=== PATIENT | female | born 1965 ===

== ENCOUNTER 2019-06-01 11:19 | Emergency (ER) | payer BC ==
[2019-06-01 13:12] VITALS: BP 155/69
--- NOTE | 2019-06-01 13:19 | UC ---
- HPI Summary HPI Summary: 54 y/o female presents to the urgent care c/o Left breast pain started 5 weeks ago. Pt states she doesn't feel any lump, no redness; no injury reported. Pt reports she recently moved for [place] here to the area and has been lifting a lot of boxes. LMP:20 years ago s/p hysterectomy in 1991. Last Mammogram was 05/2018 which was negative. Pain is 6/10 at touch, specially if she sleeps on that side. She has not taken any medication since she has Hx of esophageal strictures 2 years ago and 1.5 years ago she a a liver biopsy of a liver benign nodule. She doesn't have a PCP here in the area yet. But she has an appt with [facility] on 06/18, and mammogram appt 06/26/2019. She is very concerned about breast cancer since she has FMHX of breast cancer and cervical cancer form her aunts. Pt denies fever, nipple discharge, breast rash, lumps, DINERO / dizziness, recent weight lost in the last 3 months, SOB, chest pain, abdominal pain, N/V/D - History of Current Complaint Hx Obtained From: Patient Breast Chief Complaint: Pain - left breast pain Onset/Duration: Started Weeks Ago - 5 weeks, Atraumatic, Still Present Timing: Intermittent - at touch Breast Pain Radiates To: Left - left breast Breast Pain Aggravating Factors: Palpation Breast Pain Alleviating Factors: Nothing Breast Associated Signs/Symptoms: Negative - Allergy/Home Medications Allergies/Adverse Reactions: Allergies Allergy/AdvReac Type Severity Reaction Status Date / Time bacitracin Allergy Rash Verified 06/01/19 13:17 [From Neosporin ([id number])] latex Allergy cellulitis Verified 06/01/19 13:17 morphine Allergy Swelling Verified 06/01/19 13:17 Of Face,Lips,& Throat neomycin Allergy Rash Verified 06/01/19 13:17 [From Neosporin ([id number])] Penicillins Allergy Unknown Verified 06/01/19 13:17 Reaction Details polymyxin B Allergy Rash Verified 06/01/19 13:17 [From Neosporin ([id number])] Home Medications: Home Medications NK [No Home Medications Reported] 06/01/19 [History Confirmed 06/01/19] PMH/Surg Hx/FS Hx/Imm Hx Previously Healthy: Yes Endocrine History: Dyslipidemia - diet control - Surgical History Surgical History: Yes Surgery Procedure, Year, and Place: abdominal surgeries: appy with scar tissue, hysterectomy r/t cysts, single oopherectomy, salpingectomy, laparoscopic adhesions - Family History Known Family History: Positive: Cardiac Disease, Hypertension Family History: breast cancer and cervical cancer from her aunts - Social History Occupation: Unemployed Lives: With Family Alcohol Use: Rare Substance Use Type: None Smoking Status (MU): Never Smoked Tobacco Review of Systems All Other Systems Reviewed And Are Negative: Yes Constitutional: Positive: Negative Skin: Positive: Negative Eyes: Positive: Negative ENT: Positive: Negative Respiratory: Positive: Negative Cardiovascular: Positive: Negative Gastrointestinal: Positive: Negative Genitourinary: Positive: Other - left breast pain Motor: Positive: Negative Neurovascular: Positive: Negative Musculoskeletal: Positive: Negative Neurological: Positive: Negative Psychological: Positive: Negative Is Patient Immunocompromised?: No Physical Exam - Summary Physical Exam Summary: VITAL SIGNS: Reviewed. GENERAL: Patient is a well developed and nourished female who is sitting comfortable in the examining table. Patient is not in any acute respiratory distress. HEAD AND FACE: No signs of trauma. No ecchymosis, hematomas or skull depressions. No sinus tenderness. EYES: PERRLA, EOMI x 2, No injected conjunctiva, clear watery eyes, no nystagmus. No photophobia. EARS: Hearing grossly intact. Ear canals and tympanic membranes are within normal limits. MOUTH: pharynx with no erythema, no exudates,no palatal petechiae. no B/L tonsillar enlargement Uvula in midline. NECK: Supple, trachea is midline, no lymphadenopathy, no JVD, no carotid bruit, no c-spine tenderness, neck with full ROM. CHEST: Symmetric, no tenderness at palpation LUNGS: Clear to auscultation bilaterally. No wheezing or crackles. CVS: Regular rate and rhythm, S1 and S2 present, no murmurs or gallops appreciated. Breast:B/L breast are symmetric and have normal contour. Skin is of normal color and appearance; there are not edema, ulceration, or erythema. Nipples are of normal size and shape; there is no nipple retraction, ulceration or discharge. Left breast Palpation reveals fibroglandular tissue which is tender , but not specific masses palpated. ABDOMEN: Soft, non-tender. No signs of distention. No rebound no guarding, and no masses palpated. Bowel sounds are normal. BACK:no scoliosis or lesions, non tender to palpation, No B/L CVA tenderness EXTREMITIES: FROM in all major joints, no edema, no cyanosis or clubbing. NEURO: Alert and oriented x 3. No acute neurological deficits. Speech is normal and follows commands. SKIN: Dry and warm Triage Information Reviewed: Yes Vital Signs: Initial Vital Signs Temp 99.1 F 06/01/19 12:59 Pulse 58 06/01/19 12:59 Resp 20 06/01/19 12:59 BP 155/69 06/01/19 12:59 Pulse Ox 100 06/01/19 12:59 Breast Pain Course/Dx - Course Course Of Treatment: 54 y/o female presents to the urgent care c/o Left breast pain started 5 weeks ago. Pt states she doesn't feel any lump, no redness; no injury reported. Pt reports she recently moved for [place] here to the area and has been lifting a lot of boxes. LMP:20 years ago s/p hysterectomy in 1991. Last Mammogram was 05/2018 which was negative. Pain is 6/10 at touch, specially if she sleeps on that side. She has not taken any medication since she has Hx of esophageal strictures 2 years ago and 1.5 years ago she a a liver biopsy of a liver benign nodule. She doesn't have a PCP here in the area yet. But she has an appt with [facility] on 06/18, and mammogram appt 06/26/2019. She is very concerned about breast cancer since she has FMHX of breast cancer and cervical cancer form her aunts. Pt denies fever, nipple discharge, breast rash, lumps, DINERO / dizziness, recent weight lost in the last 3 months, SOB, chest pain, abdominal pain, N/V/D. Hx obtained. Pt is hemodynamically stable, A&OX3, Vitals : WNL> PE:WNL except for:B/L breast are symmetric and have normal contour. Skin is of normal color and appearance; there are not edema, ulceration, or erythema. Nipples are of normal size and shape; there is no nipple retraction, ulceration or discharge. Left breast Palpation reveals fibroglandular tissue which is tender, but not specific masses palpated. Pt educated on fibrocystic benign disease and the importance of a breast ultrasound and Mammogram due to her FMHX. Pt advised take Naproxen PO BID prn after meals to alleviate pain . Increase fluid intake, eat well, rest and avoid strenuous exercise, Wear breast support at all times. Apply cold compresses to alleviate pain. Strongly recommended to f/u w/ your PCP Dr Angulo on your appt next in the following weeks for blood work and further management. F/U w/ your Mammogram on 06/26/2019 for further management on her mastalgia. Pt's BP is elevated today. advised decrease salt in your diet, monitor BP and if it continues to be elevated please f/u with your PCP for further management.D/C instructions explained. Pt understood and agreed w/ plan of care. - Differential Diagnoses Differential Diagnosis/HQI/PQRI: Cystic Myalgia - Diagnoses Provider Diagnoses: Mastalgia in female, Elevated BP without diagnosis of hypertension Discharge ED - Sign-Out/Discharge Documenting (check all that apply): Patient Departure - D/C home All imaging exams completed and their final reports reviewed: No Studies - Discharge Plan Condition: Stable Disposition: HOME Patient Education Materials: Trigger Point Pain (ED) Referrals: Brigette Jasso DO [Primary Care Provider] - 3 Days Additional Instructions: 1-Please take Naproxen PO BID prn after meals to alleviate pain . Increase fluid intake, eat well, rest and avoid strenuous exercise 2- Wear breast support at all times. Apply cold compresses to alleviate pain. 3-Please f/u w/ your PCP Dr Angulo on your appt next in the following weeks for blood work and further management. F/U w/ your Mammogran on 06/26/2019 for further management on your mastalgia. 4- Your BP is elevated today. please decrease salt in your diet, monitor BP and if it continues to be elevated please f/u with your PCP for further management. Breast pain (mastalgia) is common in women but rarely a symptom of breast cancer in the absence of corroborating physical or imaging findings. -Breast pain is classified as cyclic, noncyclical, or extramammary. Clinically it is more important to distinguish extramammary pain from true breast pain, as cyclic and noncyclic breast pain are treated similarly. -Women who present with breast pain should undergo a thorough history and physical examination, before clinical judgment is used to determine whether imaging tests are necessary -Assuming they are up to date with breast cancer screening women who have breast pain but lack suspicious findings on physical exam (eg, mass, skin changes, or bloody nipple discharge) may undergo breast imaging selectively based on their presentation and age Cyclical or bilateral diffuse breast pain usually does not require imaging. Noncyclical, unilateral, or focal breast pain that is not extramammary may benefit from breast imaging to elucidate the underlying etiology and exclude breast cancer. Women under 30 years of age should undergo ultrasound; those between 30 and 39 should undergo ultrasound with or without mammography; those 40 or over should undergo both ultrasound and mammography. - Billing Disposition and Condition Condition: STABLE Disposition: Home - Attestation Statements Provider Attestation: Per institutional requirements, I have reviewed the chart, however, I was not consulted specifically or made aware of this patient by the midlevel provider. I did not personally evaluate, interact with , or disposition this patient.
== END 2019-06-01 14:20 | disposition home or self-care (01) ==
LOC: UCCORT 11:19
DX: N64.4 Mastodynia (principal); R03.0 Elevated blood-pressure reading, without diagnosis of hypertension; Z88.5 Allergy status to narcotic agent; Z88.0 Allergy status to penicillin; Z88.1 Allergy status to other antibiotic agents; Z91.040 Latex allergy status
CPT/HCPCS: 99201; G0463